=== PATIENT | female | born 1990 | race Two or more races ===

== ENCOUNTER 2017-04-04 14:31 | Outpatient (CLI) | payer OTHER ==
[~2017-04-04 14:31] MED LIST: ADVIL200 M1; DICLOFENAC SODI50 MG PO; MEDROLPACK PO
== END 2017-04-04 15:09 | disposition home or self-care (01) ==
LOC: TOM 14:31
DX: R07.9 Chest pain, unspecified (principal); M94.0 Chondrocostal junction syndrome [Tietze]

== ENCOUNTER 2020-12-05 10:09 | Emergency (ER) | payer OTHER ==
[~2020-12-05] VITALS: Ht 160 cm; Wt 59.0 kg
== END 2020-12-05 16:17 | disposition home or self-care (01) ==
LOC: ER 10:09
DX: R10.9 Unspecified abdominal pain (principal); N39.0 Urinary tract infection, site not specified; Z03.818 Encounter for observation for suspected exposure to other biological agents ruled out
CPT/HCPCS: 74177; Q9965

== ENCOUNTER 2025-02-22 16:39 | Inpatient (IN) | payer OTHER ==
[~2025-02-22] VITALS: Ht 160 cm; Wt 73.0 kg
[2025-02-22 16:19] VITALS: BP 106/70
[2025-02-22] MEDS ORDERED: BETAMETHASONE ACETATE,SOD PHOS 30 MG/5 ML ML ONE (16:48)
[2025-02-22] MEDS ORDERED: AMPICILLIN SODIUM 2,000 MG VIAL ONE (16:50)
[2025-02-22] MEDS ORDERED: AMPICILLIN SODIUM 1,000 MG VIAL IV SCH (17:03)
[2025-02-22] MEDS ORDERED: PRENATAL CAPLE1 EAC1 PO (17:15)
[2025-02-22] MEDS ORDERED: RINGERS SOLUTION,LACTATED 1,000 ML IV SCH (17:15)
[2025-02-22] MEDS ORDERED: BETAMETHASONE ACETATE,SOD PHOS 30 MG/5 ML ML IM NR (17:15)
[2025-02-22] MEDS ORDERED: AMPICILLIN SODIUM 2,000 MG VIAL IV ONE (17:15)
[2025-02-22 17:37] LABS: BASO % 0.1 % (0.1-1.2); EOS # 0.04 (0.04-0.54); EOS % 0.5 % (0.7-7.0); LYMPH # 1.54 (1.18-3.74); LYMPH % 20.5 % (19.3-53.1); MEAN PLATELET VOLUME 10.10 fl (9.4-12.4); MONO # 0.62 (0.24-0.82); MONO % 8.2 % (4.7-12.5); NEUT # 5.27 (1.56-6.13); NEUT % 70.2 % (34.0-71.1); RED CELL DISTRIBUTION WIDTH 12.3 % (11.6-14.4)
[2025-02-22 18:01] LABS: INR 0.98
[2025-02-22] MEDS ORDERED: MORPHINE SULFATE 4 MG/ML CARTRIDGE IV PRN (22:30)
[2025-02-22 23:41] VITALS: BP 113/74
[2025-02-23] VITALS (7 sets, daily range): BP systolic 98–126; BP diastolic 64–85
[2025-02-23] MEDS ORDERED: OXYTOCIN 20 UNITS/1000ML RL PIGGYBAG IV ONE (00:36)
[2025-02-23] MEDS ORDERED: ERYTHROMYCIN BASE OPHT 1GM EACH TUBE OP ONE (00:36)
[2025-02-23] MEDS ORDERED: CHLORHEXIDINE GLUCONATE 120 ML BOTTLE TOP ONE (00:36)
[2025-02-23] MEDS ORDERED: LIDOCAINE HCL 1% 10ML VIAL ONE (00:36)
[2025-02-23] MEDS ORDERED: OXYTOCIN 1,000 ML IV SCH (01:45)
[2025-02-23] MEDS ORDERED: ACETAMINOPHEN WITH CODEINE 1 UDTAB TABLET PO PRN (01:45)
[2025-02-23] MEDS ORDERED: BETAMETHASONE ACETATE,SOD PHOS 30 MG/5 ML ML IM NR (17:15)
[2025-02-24 00:18] VITALS: BP 102/67
[2025-02-24 08:00] VITALS: BP 101/63
[2025-02-24 20:40] VITALS: BP 115/78
[2025-02-25 09:01] VITALS: BP 133/79
== END 2025-02-25 11:20 | disposition home or self-care (01) | DRG 805 ==
LOC: OB/GYN 16:39 → LDR 16:39 → OB/GYN 02-23 02:20
PROVIDERS: ADMIT Obstetrics & Gynecology; ATTEND Obstetrics & Gynecology
PROC: 4A1HXCZ Monitoring of Products of Conception, Cardiac Rate, External Approach (ICD-10-PCS; 2025-02-22)
PROC: 10E0XZZ Delivery of Products of Conception, External Approach (ICD-10-PCS; principal; 2025-02-23)
DX: O42.013 Preterm premature rupture of membranes, onset of labor within 24 hours of rupture, third trimester (principal); O60.14X0 Preterm labor third trimester with preterm delivery third trimester, not applicable or unspecified; Z37.0 Single live birth; Z3A.35 35 weeks gestation of pregnancy